=== PATIENT | male | born 1955 | race Caucasian/White ===

== ENCOUNTER 2019-01-07 21:21 | Inpatient (IN) | payer MEDICAID ==
[~2019-01-07] VITALS: Ht 175.3 cm; Wt 120.8 kg
[2019-01-07] MEDS ORDERED: VANCOMYCIN PER PHARMACY IV ONE (22:00)
[2019-01-07] MEDS ORDERED: ACETAMINOPHEN 325 MG TABLET PO ONE (22:00)
[2019-01-07] MEDS ORDERED: PIPERACILLIN/TAZO/PMX 3.375GM 50 ML IVPB ONE (22:00)
[2019-01-07] MEDS ORDERED: PIPERACILLIN/TAZO/PMX 3.375GM 50 ML ONE (22:03)
[2019-01-07] MEDS ORDERED: ACETAMINOPHEN 500 MG TABLET ONE (22:03)
[2019-01-07 22:14] LABS: MEAN CORPUSCULAR HEMOGLOBIN 29.6 pg (27.5-34.5); MEAN CORPUSCULAR HGB CONC 32.7 g/dL (33.2-36.2); MEAN CORPUSCULAR VOLUME 90.6 fL (81-97); MEAN PLATELET VOLUME 8.7 fL (7.4-10.4); PLATELET COUNT 142 x10^3/uL (130-400); RED BLOOD COUNT 5.15 x10^6/uL (4.38-5.82); RED CELL DISTRIBUTION WIDTH 14.5 % (9.4-14.8)
[2019-01-07] MEDS ORDERED: ACETAMINOPHEN 325 MG TABLET ONE (22:20)
[2019-01-07 22:26] LABS: ALANINE AMINOTRANSFERASE 46 U/L (12-78); ALBUMIN 2.9 g/dL (3.4-5.0); ANION GAP 9 mmol/L (5-15); CHLORIDE 100 mmol/L (98-107); CREATININE 1.63 mg/dL (0.7-1.3)
[2019-01-07 22:27] LABS: BASOPHILS % (AUTO) 0 % (0-1); EOSINOPHILS % (AUTO) 0 % (1-7); LYMPHOCYTES # (AUTO) 0.71 x10^3/uL (1-3.4); LYMPHOCYTES % (AUTO) 4 % (22-44); MD SCAN; MONOCYTES # (AUTO) 0.78 x10^3/uL (0.2-0.8); MONOCYTES % (AUTO) 4 % (2-9); NEUTROPHILS # (AUTO) 16.16 x10^3/uL (1.8-6.8); NEUTROPHILS % (AUTO) 92 % (42-75)
[2019-01-07 22:30] LABS: ALKALINE PHOSPHATASE 67 U/L (45-117); BILIRUBIN,TOTAL 0.9 mg/dL (0.2-1.0); TOTAL PROTEIN 7.5 g/dL (6.4-8.2); TROPONIN I 0.064 ng/mL (0.000-0.045)
[2019-01-07] MEDS ORDERED: VANCOMYCIN 2,000 MG in SODIUM CHLORIDE 0.9% 500 ML IV ONE (22:30)
--- NOTE | 2019-01-07 22:41 | NUR ---
IV STARTED, ABX INFUSING. RV'WD POC WITH PT AND FAMILY. PT TO US VIA [facility] NOW.
--- NOTE | 2019-01-07 23:19 | NUR ---
PT STATES HE CAN'T VOID. WATER PROVIDED TO PT. YEIMY AT FOR RECHECK NOW.
[2019-01-07] MEDS ORDERED: SODIUM CHLORIDE 0.9% 1,000ML IVBOLUS ONE (23:30)
[2019-01-08] MEDS ORDERED: ASPIRIN 81 MG TABLET CHEW PO ONE
[2019-01-08] MEDS ORDERED: ASPIRIN 81 MG TABLET CHEW ONE (00:07)
[2019-01-08 01:16] VITALS: BP 133/84
[2019-01-08] MEDS ORDERED: DOCUSATE 100 MG CAPSULE PO PRN (01:30)
[2019-01-08] MEDS ORDERED: PHARMACY MAY ADJ FOR RENAL FX MC PRN (01:30)
[2019-01-08] MEDS ORDERED: TEMAZEPAM 15 MG CAPSULE PO PRN (01:30)
[2019-01-08] MEDS ORDERED: VANCOMYCIN PER PHARMACY MC PRN (01:30)
[2019-01-08] MEDS ORDERED: ONDANSETRON ODT 4 MG PO PRN (01:30)
[2019-01-08] MEDS: HEPARIN 5,000 UNITS/ML, 1ML SQ SCH ×3 (02:10→18:19)
[2019-01-08] MEDS: SODIUM CHLORIDE 0.9% 1,000 ML IV SCH ×2 (02:10→10:56)
[2019-01-08 03:20] VITALS: BP 121/71
[2019-01-08] MEDS ORDERED: PHARMACOKINETIC CONSULTATION MC ONE (03:30)
[2019-01-08] MEDS ORDERED: PHARMACOKINETIC MONITORING MC PRN (03:30)
[2019-01-08 04:24] LABS: MICROSCOPIC INDICATED
[2019-01-08 04:36] LABS: CULTURE INDICATED? NO
[2019-01-08 07:26] VITALS: BP 144/80
[2019-01-08] MEDS: INSULIN LISPRO 100 UNITS/ML, PEN SQ-INSULIN SCH ×4 (08:10→19:50)
[2019-01-08] MEDS: ACETAMINOPHEN 325 MG TABLET PO PRN ×2 (08:11→19:48)
[2019-01-08] MEDS: PIPERACILLIN/TAZO/PMX 3.375GM 50 ML IV SCH ×2 (08:13→18:18)
[2019-01-08 11:05] LABS: ANION GAP 7 mmol/L (5-15); CALCIUM 8.5 mg/dL (8.5-10.1); CHLORIDE 106 mmol/L (98-107); CREATININE 1.15 mg/dL (0.7-1.3)
[2019-01-08 11:10] LABS: TROPONIN I 0.158 ng/mL (0.000-0.045)
[2019-01-08 11:19] VITALS: BP 119/75
[2019-01-08 11:27] LABS: MEAN CORPUSCULAR HEMOGLOBIN 29.5 pg (27.5-34.5); MEAN CORPUSCULAR HGB CONC 32.9 g/dL (33.2-36.2); MEAN CORPUSCULAR VOLUME 89.8 fL (81-97); MEAN PLATELET VOLUME 8.6 fL (7.4-10.4); PLATELET COUNT 134 x10^3/uL (130-400); RED BLOOD COUNT 4.54 x10^6/uL (4.38-5.82); RED CELL DISTRIBUTION WIDTH 14.6 % (9.4-14.8)
[2019-01-08 11:44] LABS: BASOPHILS % (AUTO) 0 % (0-1); EOSINOPHILS % (AUTO) 0 % (1-7); LYMPHOCYTES % (AUTO) 5 % (22-44); MD SCAN; MONOCYTES # (AUTO) 1.51 x10^3/uL (0.2-0.8); MONOCYTES % (AUTO) 8 % (2-9); NEUTROPHILS # (AUTO) 16.04 x10^3/uL (1.8-6.8); NEUTROPHILS % (AUTO) 86 % (42-75)
[2019-01-08 13:23] VITALS: BP 126/78
[2019-01-08] MEDS: VANCOMYCIN 2,000 MG in SODIUM CHLORIDE 0.9% 500 ML IV SCH (13:24)
[2019-01-08] MEDS ORDERED: POTASSIUM CHLORIDE 20 MEQ TAB.ER.PRT PO ONE (18:00)
[2019-01-08 19:31] VITALS: BP 133/85
[2019-01-08] MEDS ORDERED: ASPI-515 PO (20:35)
[2019-01-08] MEDS ORDERED: AMLO-150 PO (20:35)
[2019-01-08] MEDS ORDERED: ATOR40TA78 PO (20:35)
[2019-01-08] MEDS ORDERED: ATEN50TA41 PO (20:35)
[2019-01-08] MEDS ORDERED: IBUPROFEN 200 MG TABLET PO ONE (21:30)
[2019-01-09 00:52] VITALS: BP 119/72
[2019-01-09] MEDS: PIPERACILLIN/TAZO/PMX 3.375GM 50 ML IV SCH ×3 (01:12→16:39)
[2019-01-09] MEDS: HEPARIN 5,000 UNITS/ML, 1ML SQ SCH ×3 (04:05→21:02)
[2019-01-09 06:14] LABS: BASOPHILS # (AUTO) 0.01 x10^3/uL (0-0.1); BASOPHILS % (AUTO) 0 % (0-1); EOSINOPHILS # (AUTO) 0.04 x10^3/uL (0-0.4); EOSINOPHILS % (AUTO) 0 % (1-7); LYMPHOCYTES # (AUTO) 0.96 x10^3/uL (1-3.4); LYMPHOCYTES % (AUTO) 6 % (22-44); MD NO; MEAN CORPUSCULAR HEMOGLOBIN 29.8 pg (27.5-34.5); MEAN CORPUSCULAR HGB CONC 32.4 g/dL (33.2-36.2); MEAN CORPUSCULAR VOLUME 92.1 fL (81-97); MEAN PLATELET VOLUME 8.6 fL (7.4-10.4); MONOCYTES # (AUTO) 1.15 x10^3/uL (0.2-0.8); MONOCYTES % (AUTO) 8 % (2-9); NEUTROPHILS # (AUTO) 13.16 x10^3/uL (1.8-6.8); NEUTROPHILS % (AUTO) 86 % (42-75); PLATELET COUNT 153 x10^3/uL (130-400); RED BLOOD COUNT 4.67 x10^6/uL (4.38-5.82); RED CELL DISTRIBUTION WIDTH 14.9 % (9.4-14.8)
[2019-01-09 06:27] LABS: ANION GAP 6 mmol/L (5-15); CALCIUM 8.5 mg/dL (8.5-10.1); CHLORIDE 107 mmol/L (98-107)
[2019-01-09 06:34] LABS: CREATININE 1.05 mg/dL (0.7-1.3); HEMOGLOBIN A1C 6.9 % (4.2-6.3); TROPONIN I 0.539 ng/mL (0.000-0.045)
[2019-01-09] MEDS: INSULIN LISPRO 100 UNITS/ML, PEN SQ-INSULIN SCH ×4 (07:00→21:00)
[2019-01-09 08:10] VITALS: BP 126/80
[2019-01-09] MEDS: VANCOMYCIN 2,000 MG in SODIUM CHLORIDE 0.9% 500 ML IV SCH (10:20)
[2019-01-09] MEDS ORDERED: POTASSIUM CHLORIDE 20 MEQ TAB.ER.PRT PO ONE (10:30)
[2019-01-09] MEDS ORDERED: FUROSEMIDE 40 MG/4 ML IV ONE (10:30)
[2019-01-09] MEDS ORDERED: OMNIPAQUE 350 MG/ML, 150 ML BOTTLE ONE (10:30)
[2019-01-09 14:18] VITALS: BP 128/79
[2019-01-09 18:54] VITALS: BP 132/82
[2019-01-10] MEDS: PIPERACILLIN/TAZO/PMX 3.375GM 50 ML IV SCH ×3 (00:09→16:18)
[2019-01-10 01:56] VITALS: BP 149/90
[2019-01-10] MEDS: VANCOMYCIN 2,000 MG in SODIUM CHLORIDE 0.9% 500 ML IV SCH ×2 (02:18→20:34)
[2019-01-10] MEDS: HEPARIN 5,000 UNITS/ML, 1ML SQ SCH ×3 (04:17→20:34)
[2019-01-10] MEDS ORDERED: ALBUTEROL SULFATE 2.5 MG/3 ML ONE (04:45)
[2019-01-10] MEDS ORDERED: ALBUTEROL SULFATE 2.5 MG/3 ML NPPB ONE (05:00)
[2019-01-10] MEDS: INSULIN LISPRO 100 UNITS/ML, PEN SQ-INSULIN SCH ×4 (07:47→20:34)
[2019-01-10 08:35] VITALS: BP 128/81
[2019-01-10 08:53] LABS: MEAN CORPUSCULAR HEMOGLOBIN 29.3 pg (27.5-34.5); MEAN CORPUSCULAR HGB CONC 32.5 g/dL (33.2-36.2); MEAN CORPUSCULAR VOLUME 90.2 fL (81-97); PLATELET COUNT 202 x10^3/uL (130-400); RED BLOOD COUNT 4.41 x10^6/uL (4.38-5.82); RED CELL DISTRIBUTION WIDTH 14.2 % (9.4-14.8)
[2019-01-10 09:19] LABS: BASOPHILS # (AUTO) 0.09 x10^3/uL (0-0.1); BASOPHILS % (AUTO) 1 % (0-1); EOSINOPHILS # (AUTO) 0.23 x10^3/uL (0-0.4); EOSINOPHILS % (AUTO) 2 % (1-7); LYMPHOCYTES # (AUTO) 1.33 x10^3/uL (1-3.4); LYMPHOCYTES % (AUTO) 10 % (22-44); MD SCAN; MONOCYTES % (AUTO) 8 % (2-9); NEUTROPHILS # (AUTO) 11.08 x10^3/uL (1.8-6.8); NEUTROPHILS % (AUTO) 80 % (42-75)
[2019-01-10 11:29] LABS: ANION GAP 8 mmol/L (5-15); CALCIUM 8.7 mg/dL (8.5-10.1); CHLORIDE 103 mmol/L (98-107); CREATININE 0.92 mg/dL (0.7-1.3)
[2019-01-10 14:55] VITALS: BP 138/84
[2019-01-10 19:13] VITALS: BP 177/97
[2019-01-10 23:29] VITALS: BP 159/91
[2019-01-11] MEDS: PIPERACILLIN/TAZO/PMX 3.375GM 50 ML IV SCH (00:40)
[2019-01-11 00:44] VITALS: BP 165/98
[2019-01-11] MEDS: HEPARIN 5,000 UNITS/ML, 1ML SQ SCH ×3 (04:57→20:39)
[2019-01-11] MEDS: INSULIN LISPRO 100 UNITS/ML, PEN SQ-INSULIN SCH ×4 (07:27→20:39)
[2019-01-11 09:05] VITALS: BP 158/92
[2019-01-11] MEDS: HYDROCHLOROTHIAZIDE 12.5 MG CAPSULE PO SCH (09:08)
[2019-01-11] MEDS: LISINOPRIL 20 MG TABLET PO SCH (09:08)
[2019-01-11] MEDS: DOXYCYCLINE 100MG TABLET PO SCH ×2 (09:08→20:38)
[2019-01-11] MEDS: AMOXICILLIN/CLAV 875-125MG TABLET PO SCH ×2 (09:08→20:38)
[2019-01-11 09:37] LABS: MEAN CORPUSCULAR HEMOGLOBIN 29.6 pg (27.5-34.5); MEAN CORPUSCULAR HGB CONC 32.9 g/dL (33.2-36.2); MEAN CORPUSCULAR VOLUME 89.9 fL (81-97); MEAN PLATELET VOLUME 7.5 fL (7.4-10.4); PLATELET COUNT 268 x10^3/uL (130-400); RED BLOOD COUNT 4.52 x10^6/uL (4.38-5.82); RED CELL DISTRIBUTION WIDTH 14.1 % (9.4-14.8)
[2019-01-11 09:47] LABS: ANION GAP 10 mmol/L (5-15); CALCIUM 9.1 mg/dL (8.5-10.1); CHLORIDE 105 mmol/L (98-107); CREATININE 0.94 mg/dL (0.7-1.3)
[2019-01-11 09:49] LABS: MD YES
[2019-01-11 09:50] LABS: <RBC MORPHOLOGY> NORMAL; BAND#(MANUAL) 0.17 x10^3/uL; BANDS%(MANUAL) 1 % (0-7); EOS#(MANUAL) 0.34 x10^3/uL (0.0-0.4); EOS% (MANUAL) 2 % (1-7); LYMPH#(MANUAL) 2.05 x10^3/uL (1-3.4); LYMPHS% (MANUAL) 12 % (22-44); MONOS#(MANUAL) 0.68 x10^3/uL (0.3-2.7); MONOS% (MANUAL) 4 % (2-9); SEG#(MANUAL) 13.85 x10^3/uL (1.8-6.8); SEGS% (MANUAL) 81 % (42-75)
[2019-01-11 09:51] LABS: NRBC % (MANUAL) 1 % (0-1); TOXIC GRAN 1+
[2019-01-11 09:52] LABS: <PLATELET ESTIMATE> ADEQUATE; <PLT MORPHOLOGY> NORMAL PLT MORPH
[2019-01-11] MEDS ORDERED: POTASSIUM CHLORIDE 20 MEQ TAB.ER.PRT PO ONE (11:30)
[2019-01-11] MEDS ORDERED: FUROSEMIDE 40 MG/4 ML IV ONE (11:30)
[2019-01-11 12:31] VITALS: BP 145/92
[2019-01-11 18:57] VITALS: BP 117/77
[2019-01-12 00:07] VITALS: BP 117/77
[2019-01-12 05:26] LABS: MEAN CORPUSCULAR HEMOGLOBIN 29.8 pg (27.5-34.5); MEAN CORPUSCULAR HGB CONC 32.6 g/dL (33.2-36.2); MEAN CORPUSCULAR VOLUME 91.6 fL (81-97); MEAN PLATELET VOLUME 7.7 fL (7.4-10.4); PLATELET COUNT 282 x10^3/uL (130-400); RED BLOOD COUNT 4.35 x10^6/uL (4.38-5.82); RED CELL DISTRIBUTION WIDTH 14.3 % (9.4-14.8)
[2019-01-12] MEDS: HEPARIN 5,000 UNITS/ML, 1ML SQ SCH ×2 (05:27→13:20)
[2019-01-12 05:58] LABS: MD YES
[2019-01-12 05:59] LABS: <RBC MORPHOLOGY> NORMAL; BAND#(MANUAL) 0.85 x10^3/uL; BANDS%(MANUAL) 5 % (0-7); LYMPH#(MANUAL) 0.68 x10^3/uL (1-3.4); LYMPHS% (MANUAL) 4 % (22-44); METAMYELOCYTES# (MANUAL) 0.51 x10^3/uL (0-0); METAMYELOCYTES% (MANUAL) 3 % (0-1); MONOS#(MANUAL) 1.19 x10^3/uL (0.3-2.7); MONOS% (MANUAL) 7 % (2-9); MYELOCYTES# (MANUAL) 0.17 x10^3/uL (0-0); MYELOCYTES% (MANUAL) 1 % (0-0); SEGS% (MANUAL) 80 % (42-75); TOXIC GRAN 1+
[2019-01-12 06:00] LABS: <PLATELET ESTIMATE> ADEQUATE; <PLT MORPHOLOGY> NORMAL PLT MORPH
[2019-01-12 07:33] VITALS: BP 142/83
[2019-01-12] MEDS: INSULIN LISPRO 100 UNITS/ML, PEN SQ-INSULIN SCH ×2 (07:45→11:46)
[2019-01-12] MEDS ORDERED: DOXY100T PO (08:38)
[2019-01-12] MEDS ORDERED: AMOX1TAB12 PO (08:38)
[2019-01-12] MEDS ORDERED: HYDR12.517 PO (08:38)
[2019-01-12] MEDS: HYDROCHLOROTHIAZIDE 12.5 MG CAPSULE PO SCH (09:01)
[2019-01-12] MEDS: DOXYCYCLINE 100MG TABLET PO SCH (09:01)
[2019-01-12] MEDS: LISINOPRIL 20 MG TABLET PO SCH (09:01)
[2019-01-12] MEDS: AMOXICILLIN/CLAV 875-125MG TABLET PO SCH (09:01)
[2019-01-12 14:00] VITALS: BP 130/86
== END 2019-01-12 16:05 | disposition home or self-care (01) | DRG 871 ==
LOC: ED 22:26 → EDIP 23:35 → 5SO 01-08 00:17 → DCLOUNGE 01-12 15:56
PROVIDERS: ADMIT Family Medicine; ATTEND Family Medicine
DX: A41.9 Sepsis, unspecified organism (principal); G92 Toxic encephalopathy; N17.0 Acute kidney failure with tubular necrosis; R65.21 Severe sepsis with septic shock; J96.01 Acute respiratory failure with hypoxia; I21.9 Acute myocardial infarction, unspecified; E44.0 Moderate protein-calorie malnutrition; L03.116 Cellulitis of left lower limb; E11.9 Type 2 diabetes mellitus without complications; E66.01 Morbid (severe) obesity due to excess calories; E78.5 Hyperlipidemia, unspecified; F17.200 Nicotine dependence, unspecified, uncomplicated; G47.33 Obstructive sleep apnea (adult) (pediatric); I10 Essential (primary) hypertension; Z68.39 Body mass index [BMI] 39.0-39.9, adult; Z71.6 Tobacco abuse counseling
CPT/HCPCS: 36415; 84145; 99291; J7613; 71045; 80048; 80053; 80202; 81001; 82962; 83036; 83605; 83735; 84484; 85025; 87040; 93005; 93306; 93922; 94640; 96365; 96375; G0378; J1644; J1940; J2543; J3370; Q9967; 29581-50; J7030; J7040

== ENCOUNTER → 2019-01-17 | Outpatient (CLI) | payer MEDICAID ==
[~2019-01-17] MED LIST: AMLO-150 PO; AMOX1TAB12 PO; ASPI-515 PO; ATEN50TA41 PO; ATOR40TA78 PO; DOXY100T PO; HYDR12.517 PO
== END | disposition home or self-care (01) ==
LOC: WOUND 13:47
PROVIDERS: ATTEND Internal Medicine
DX: E11.622 Type 2 diabetes mellitus with other skin ulcer (principal); L97.521 Non-pressure chronic ulcer of other part of left foot limited to breakdown of skin; I87.8 Other specified disorders of veins; E78.5 Hyperlipidemia, unspecified; I10 Essential (primary) hypertension; G47.33 Obstructive sleep apnea (adult) (pediatric); F10.20 Alcohol dependence, uncomplicated; F17.210 Nicotine dependence, cigarettes, uncomplicated; E66.9 Obesity, unspecified; Z68.37 Body mass index [BMI] 37.0-37.9, adult
CPT/HCPCS: 97597; 97598; 99205

== ENCOUNTER → 2019-01-24 | Outpatient (CLI) | payer MEDICAID | END | disposition home or self-care (01) | LOC: WOUND 13:40 | PROVIDERS: ATTEND Internal Medicine | DX: E11.622 Type 2 diabetes mellitus with other skin ulcer (principal); I87.322 Chronic venous hypertension (idiopathic) with inflammation of left lower extremity; L97.821 Non-pressure chronic ulcer of other part of left lower leg limited to breakdown of skin; F17.200 Nicotine dependence, unspecified, uncomplicated | CPT/HCPCS: 97597 ==

== ENCOUNTER → 2019-01-31 | Outpatient (CLI) | payer MEDICAID | END | disposition home or self-care (01) | LOC: WOUND 10:39 | PROVIDERS: ATTEND Internal Medicine | DX: E11.622 Type 2 diabetes mellitus with other skin ulcer (principal); L97.828 Non-pressure chronic ulcer of other part of left lower leg with other specified severity; I87.8 Other specified disorders of veins; G47.33 Obstructive sleep apnea (adult) (pediatric); I25.2 Old myocardial infarction; E78.5 Hyperlipidemia, unspecified; F17.210 Nicotine dependence, cigarettes, uncomplicated; E66.01 Morbid (severe) obesity due to excess calories; Z68.37 Body mass index [BMI] 37.0-37.9, adult | CPT/HCPCS: 99213 ==

== ENCOUNTER 2019-02-03 12:43 | Emergency (ER) | payer MEDICAID ==
[~2019-02-03] VITALS: Ht 175.3 cm; Wt 118.0 kg
[2019-02-03] MEDS ORDERED: SODIUM CHLORIDE FLUSH 10ML SYR IVF ONE (13:00)
[2019-02-03 13:35] LABS: BASOPHILS # (AUTO) 0.04 x10^3/uL (0-0.1); BASOPHILS % (AUTO) 1 % (0-1); EOSINOPHILS # (AUTO) 0.24 x10^3/uL (0-0.4); EOSINOPHILS % (AUTO) 3 % (1-7); LYMPHOCYTES # (AUTO) 1.49 x10^3/uL (1-3.4); LYMPHOCYTES % (AUTO) 20 % (22-44); MD NO; MEAN CORPUSCULAR HEMOGLOBIN 29.6 pg (27.5-34.5); MEAN CORPUSCULAR HGB CONC 32.8 g/dL (33.2-36.2); MEAN CORPUSCULAR VOLUME 90.3 fL (81-97); MONOCYTES # (AUTO) 0.93 x10^3/uL (0.2-0.8); MONOCYTES % (AUTO) 12 % (2-9); NEUTROPHILS # (AUTO) 4.86 x10^3/uL (1.8-6.8); NEUTROPHILS % (AUTO) 64 % (42-75); PLATELET COUNT 172 x10^3/uL (130-400); RED BLOOD COUNT 4.75 x10^6/uL (4.38-5.82); RED CELL DISTRIBUTION WIDTH 14.4 % (9.4-14.8)
[2019-02-03 13:43] LABS: ALANINE AMINOTRANSFERASE 43 U/L (12-78); ALBUMIN 3.1 g/dL (3.4-5.0); ANION GAP 7 mmol/L (5-15); CALCIUM 9.3 mg/dL (8.5-10.1); CHLORIDE 110 mmol/L (98-107)
[2019-02-03 13:46] LABS: ALKALINE PHOSPHATASE 73 U/L (45-117); BILIRUBIN,TOTAL 0.6 mg/dL (0.2-1.0); CREATININE 0.99 mg/dL (0.7-1.3); TOTAL PROTEIN 7.6 g/dL (6.4-8.2)
--- NOTE | 2019-02-03 14:13 | NUR ---
Pt to room from [facility], ambulatory with steady gait.
--- NOTE | 2019-02-03 14:22 | NUR ---
DR GARNICA BS FOR EXAM
--- NOTE | 2019-02-03 14:36 | NUR ---
PT SITTING UP IN BED, REPORTS INCREASED ETOH AND SALTY FOODS THIS WEEKEND, AND AFTER NOTED INCREASE IN LEFT LOWER LEG AND FOOT SWELLING. HX OF INFECTION TO LEFT HESS/ANKLE. HEALING SKIN AND SCABS EVIDENT. RESPIRATIONS EVEN AND UNLABORED ON RA. PT AWARE OF POC. AWAITING US. CALL LIGHT IN REACH, SIDE RAIL UP.
[2019-02-03 16:07] VITALS: BP 149/71
== END 2019-02-03 16:09 | disposition home or self-care (01) ==
LOC: ED 15:40
DX: R60.0 Localized edema (principal); M79.662 Pain in left lower leg; I25.2 Old myocardial infarction
CPT/HCPCS: 36415; 80053; 83605; 85025; 87040; 99284

== ENCOUNTER 2019-03-01 15:15 | Emergency (ER) | payer MEDICAID ==
[~2019-03-01] VITALS: Ht 175.3 cm; Wt 120.0 kg
--- NOTE | 2019-03-01 16:16 | NUR ---
MOTION PICTURE ACTOR: PT TO ED ROOM 24 FROM LOBBY IN NAD AT THIS TIME
--- NOTE | 2019-03-01 16:19 | NUR ---
BREAK RN: CONTACT WITH PT, 63 YR OLD MALE HERE WITH C/O "LAST COUPLE OF MORNINGS, I WAKE UP WITH INCREDIBLE PAIN IN MY LOWER BACK DOWN BOTH OF MY LEGS TO ABOUT THE KNEES. WITH A BUNCH OF IBUPROFEN, A HOT SHOWER AND SOME WALKING AROUND, THE PAIN GOES DOWN" PT WITH SCAB TO LEFT HESS. DR LOPEZ AT BEDSIDE TO GRABIEL PT.
[2019-03-01] MEDS ORDERED: KETOROLAC 30 MG/1 ML IM ONE (16:30)
[2019-03-01] MEDS ORDERED: METHOCARBAMOL 750 MG TABLET PO ONE (16:30)
[2019-03-01] MEDS ORDERED: OXYcodone/APAP 5/325MG TABLET PO ONE (16:30)
[2019-03-01] MEDS ORDERED: KETOROLAC 30 MG/1 ML ONE (16:38)
[2019-03-01] MEDS ORDERED: METHOCARBAMOL 750 MG TABLET ONE (16:38)
[2019-03-01] MEDS ORDERED: OXYcodone/APAP 5/325MG TABLET ONE (16:39)
--- NOTE | 2019-03-01 16:47 | NUR ---
PT MEDICATED FOR 8/10 PAIN ORDERED. PT DROVE SELF HERE, DISCUSSED WITH PT, FINDING ALTERNATE TRANSPORTATION HOME, UNDERSTANDING VERBALIZED. REPORT TO ENID ANDRADE.
--- NOTE | 2019-03-01 16:50 | NUR ---
TO CT SCAN
--- NOTE | 2019-03-01 17:40 | NUR ---
PATIENT REPORTS PAIN IMPROVED TO 4/10. AMBULATING W/OUT DIFFICULTY PROVIDED W/ PO FLUIDS PROVIDER TO BEDSIDE TO REASSESS-PLAN ON DISPO
[2019-03-01 17:55] VITALS: BP 160/111
--- NOTE | 2019-03-01 18:52 | NUR ---
PATIENT DISCHARGED IN THE COMPANY OF HIS FRIEND WHO WILL BE DRIVING HIM HOME. TEACH BACK ON POC (MEDICATIONS NECCESSARY/F/U WITH NEUROSURGEON) SUCCESSFUL
== END 2019-03-01 18:54 | disposition home or self-care (01) ==
LOC: ED 18:05
DX: M51.36 Other intervertebral disc degeneration, lumbar region (principal); M54.16 Radiculopathy, lumbar region; M51.26 Other intervertebral disc displacement, lumbar region; I25.2 Old myocardial infarction; E11.9 Type 2 diabetes mellitus without complications
CPT/HCPCS: 72131; 96372; 99284; J1885